=== PATIENT | male | born 1985 | race Caucasian/White ===

== ENCOUNTER 2021-02-22 18:51 | Emergency (ER) | payer OTHER ==
[~2021-02-22 18:51] MED LIST: CATAPRES 0.1MG0.1 MG PO; ELIQUIS2.5 MG PO; ELIQUIS5 MG PO; HYDROCHLOROTHIA25 MG PO; IBUPROFEN600 MG PO; NEURONTIN800 MG PO; NORFLEX 100 MG100 MG PO; SUBOXONE 8 MG-1 EACH SL; Voltaren Gel 1 % TOP; ZANAFLEX4 MG PO; ZESTRIL40 MG PO
[2021-02-22 20:10] LABS: BUN/CREATININE RATIO 15 (0-10)
[2021-02-22] MEDS ORDERED: CEPHALEXIN500 MG PO (22:46)
== END 2021-02-22 23:00 | disposition home or self-care (01) ==
LOC: ER1 18:51
PROVIDERS: Physician Assistant
DX: L03.115 Cellulitis of right lower limb (principal); E11.42 Type 2 diabetes mellitus with diabetic polyneuropathy; R79.1 Abnormal coagulation profile; I10 Essential (primary) hypertension; F17.290 Nicotine dependence, other tobacco product, uncomplicated; Z79.82 Long term (current) use of aspirin; Z79.899 Other long term (current) drug therapy; Z90.49 Acquired absence of other specified parts of digestive tract
CPT/HCPCS: 80053; 82550; 82553; 83874; 84484; 85379; 99283; J1650

== ENCOUNTER 2021-03-27 06:49 | Emergency (ER) | payer OTHER ==
[~2021-03-27 06:49] MED LIST changes: +CEPHALEXIN500 MG PO
== END 2021-03-27 07:13 | disposition left against medical advice (07) ==
LOC: ER1 06:49
DX: Z53.21 Procedure and treatment not carried out due to patient leaving prior to being seen by health care provider (principal)

== ENCOUNTER 2021-07-30 12:32 | Emergency (ER) | payer OTHER ==
[2021-07-30 13:22] LABS: HEMOGLOBIN 13.7 gm/dl (14.0-17.5); RED BLOOD COUNT 5.02 M/UL (4.20-5.50); WHITE BLOOD COUNT 12.6 K/UL (4.5-11.0)
[2021-07-30 13:35] LABS: BUN/CREATININE RATIO 15 (0-10)
[2021-07-30] MEDS ORDERED: COLCRYS0.6 MG PO (15:46)
== END 2021-07-30 15:57 | disposition home or self-care (01) ==
LOC: ER1 12:32
PROVIDERS: Physician Assistant Medical
DX: M79.672 Pain in left foot (principal); R79.1 Abnormal coagulation profile; E11.9 Type 2 diabetes mellitus without complications; I10 Essential (primary) hypertension
CPT/HCPCS: 73590; 73630; 80053; 84550; 85025; 85379; 85610; 99283; J1650

== ENCOUNTER 2021-10-08 21:41 | Emergency (ER) | payer OTHER ==
[~2021-10-08 21:41] MED LIST changes: +COLCRYS0.6 MG PO
[2021-10-08 23:24] LABS: HEMOGLOBIN 12.8 gm/dl (14.0-17.5); RED BLOOD COUNT 4.41 M/UL (4.20-5.50); WHITE BLOOD COUNT 9.6 K/UL (4.5-11.0)
[2021-10-09 01:22] LABS: BUN/CREATININE RATIO 11 (0-10)
[2021-10-09] MEDS ORDERED: NORFLEX 100 MG100 MG PO (03:10)
[2021-10-09] MEDS ORDERED: Voltaren Gel 1 % TOP (03:10)
[2021-10-09] MEDS ORDERED: MEDROL DOSEPAK 24 MG PO (03:10)
[2021-10-09] MEDS ORDERED: ZOFRAN4 MG PO (03:10)
== END 2021-10-09 05:00 | disposition home or self-care (01) ==
LOC: ER1 21:41
PROVIDERS: Physician Assistant Medical
DX: M54.42 Lumbago with sciatica, left side (principal); I10 Essential (primary) hypertension; F17.290 Nicotine dependence, other tobacco product, uncomplicated; E11.40 Type 2 diabetes mellitus with diabetic neuropathy, unspecified; Z79.84 Long term (current) use of oral hypoglycemic drugs; Z79.899 Other long term (current) drug therapy
CPT/HCPCS: 71045; 72129; 72132; 80053; 80307; 81001; 82550; 82553; 83874; 84484; 85025; 85379; 85652; 86140; 93005; 96374; 96375; 99285; J1885; J2930; Q9967

== ENCOUNTER → 2021-12-26 | Outpatient (CLI) | payer OTHER ==
[~2021-12-26] MED LIST changes: +MEDROL DOSEPAK 24 MG PO; +ZOFRAN4 MG PO
== END ==
LOC: SLEEP 21:30
DX: G47.33 Obstructive sleep apnea (adult) (pediatric) (principal)
CPT/HCPCS: 95811

== ENCOUNTER 2022-04-15 16:27 | Observation (INO) | payer OTHER ==
[~2022-04-15] VITALS: Ht 180.3 cm; Wt 131.5 kg
[~2022-04-15 16:27] MED LIST changes: +BUPRENORPHIN-N1 EACH SL; -SUBOXONE 8 MG-1 EACH SL
[2022-04-15 19:28] LABS: HEMOGLOBIN 14.4 gm/dl (14.0-17.5); RED BLOOD COUNT 4.87 M/UL (4.20-5.50); WHITE BLOOD COUNT 13.5 K/UL (4.5-11.0)
[2022-04-15 19:53] LABS: BUN/CREATININE RATIO 15 (0-10)
[2022-04-16 06:18] LABS: HEMOGLOBIN 13.5 gm/dl (14.0-17.5); RED BLOOD COUNT 4.62 M/UL (4.20-5.50); WHITE BLOOD COUNT 11.9 K/UL (4.5-11.0)
[2022-04-16 06:51] LABS: BUN/CREATININE RATIO 15 (0-10)
[2022-04-16] MEDS ORDERED: ASPIRIN EC81 MG PO (11:27)
[2022-04-16] MEDS ORDERED: IBU800 MG PO (11:27)
[2022-04-16] MEDS ORDERED: PROTONIX 40 MG40 M1 PO (11:28)
[2022-04-16] MEDS ORDERED: FLONASE ALLER15.8 ML (11:28)
[2022-04-16] MEDS ORDERED: FAMOTIDINE40 MG PO (11:28)
[2022-04-16] MEDS ORDERED: GLIPIZIDE5 MG PO (11:29)
[2022-04-16] MEDS ORDERED: NARCAN4 MG (11:29)
[2022-04-16] MEDS ORDERED: ELIQUIS5 M1 PO (12:51)
--- NOTE | 2022-04-16 13:16 | NUR ---
BRIANNA REN GIVEN TO PT.
== END 2022-04-16 13:16 | disposition home or self-care (01) ==
LOC: ER1 16:27 → CDU 22:39 → MED SURG 4 22:39
PROVIDERS: Nurse Practitioner; Physician Assistant; ADMIT Internal Medicine
DX: I26.93 Single subsegmental thrombotic pulmonary embolism without acute cor pulmonale (principal); I10 Essential (primary) hypertension; E11.40 Type 2 diabetes mellitus with diabetic neuropathy, unspecified; G47.33 Obstructive sleep apnea (adult) (pediatric); M79.604 Pain in right leg; F17.290 Nicotine dependence, other tobacco product, uncomplicated; Z86.711 Personal history of pulmonary embolism; Z79.84 Long term (current) use of oral hypoglycemic drugs; Z79.899 Other long term (current) drug therapy
CPT/HCPCS: 36415; 73620; 80053; 80307; 81001; 83735; 85025; 85379; 87086; 93971; 96372; 96374; 96375; 99285; G0378; J1650; J1885; J2270; J2405; Q9967